=== PATIENT | female | born 1935 | race Caucasian/White ===

== ENCOUNTER → 2020-01-27 | Outpatient (CLI) | payer OTHER, MEDICARE ==
[~2020-01-27] MED LIST: AMLODIPINE BESYL5 MG PO; ARAVA20 MG PO; CALCIUM +D & M1 EACH; FISH OIL 1,001000 M2 PO; FISHOIL; IBANDRONATE SO150 MG PO; LOVASTAT20 PO; MIRALAX255 GM PO; NORCO 7.5-3251 EACH PO; OMEPRAZOLE20 M2 PO; PROLIA60 MG/1 ML SQ; TRAMADOL 50 MG50 MG; ULTRAM 50MG TAB50 MG PO
== END ==
LOC: MRI 08:48
PROVIDERS: ATTEND Specialist
DX: M47.22 Other spondylosis with radiculopathy, cervical region (principal); M48.02 Spinal stenosis, cervical region

== ENCOUNTER → 2020-02-01 | Outpatient (CLI) | payer OTHER, MEDICARE ==
[~2020-02-01] VITALS: Ht 152.4 cm; Wt 67.1 kg
[~2020-02-01] MED LIST changes: +AMLODIPINE BESY10 MG PO; -AMLODIPINE BESYL5 MG PO; +DULOXETINE HCL20 MG PO; +LIPITOR40 MG PO; +NEURONTIN 300M300 M2 PO; +POTASSIUM20 PO; +TRAMADOL 50 MG50 MG PO; +VITAMIN D3 COM1 EACH PO
[2020-02-01 14:33] VITALS: BP 128/76
--- NOTE | 2020-02-01 15:00 | NUR ---
Pain Clinic Assessment: 1. History of Osteoarthritis: EVERYWHERE History of Rheumatoid Arthritis: YES-CONTROLLED WITH MEDICATION 2. Height: 5 ft. 0 in. 152.4 cm. Weight: 148.0 lb. oz. 67.132 kg. Patient's BMI: 28.9 3. Vital Signs: BP: 128/76 Pulse: 73 Resp: 16 Temp: 02 Sat: 98 ECG Mon: 4. Pain Intensity: 6-8 5. Fall Risk: Dizziness: Y Needs help standing or walking: N Fallen in the last 3 months: N Fall risk comments: 6. Patient on Blood Thinner: None 7. History of Hypertension: Y 8. Opioid Therapy greater than 6 weeks: N Opiate Contract Signed: 9. Risk Assessment Tool Provided: 0-LOW RISK 10. Functional Assessment Tool: 11. Recreational Drug Use: Never Drug Type: Tobacco Use: Never Smoker Tobacco Type: Amount or Packs/day: How Many Years: Alcohol Use: Yes Frequency: Weekly Quant: 2 DRINKS PER WEEK
--- NOTE | 2020-02-15 08:53 | HPC ---
[facility] [place] [address] [address] PAIN MANAGEMENT CONSULTATION Name: ANDREA SHEARER Room #: REG PANTERA Carroll.#: [id number] Admission: 02/01/20 Attend Phys: Liss Chávez MD Discharge: Date of : 39 Report #: [id number] THIS REPORT FOR: cc: India Keith MD,India Chávez,Liss Heath MD ~ CC: Liss Keith DATE OF SERVICE: 02/01/2020 PRIMARY CARE PHYSICIAN: India Keith MD CHIEF COMPLAINT: Sciatic pain. HISTORY: The patient is an 84-year-old female who presents to the pain clinic with complaints of back and leg pain. It involves her right hip and she describes as a sharp pain with aching, burning qualities. Pain is worse when she is standing. Pain improves when she is sitting. She recalls being thrown from a horse about 20 years ago and landing on her buttocks. Pain improves when she uses heating pad alternating with ice. Rates her pain as an 8-10 depending on the activity. CURRENT MEDICATIONS: K-Dur 20 mEq, vitamin D3 complete, gabapentin 300 mg t.i.d., duloxetine 20 mg, Lipitor 40 mg, Prolia 60 mg subcutaneous, tramadol 50 mg q.4 hours p.r.n., Arava 20 mg, MiraLax 17 grams, omeprazole 20 mg, and amlodipine 10 mg. ALLERGIES: PENICILLIN, ASPIRIN, KETOROLAC. PAST MEDICAL HISTORY: Rheumatoid arthritis, GERD, essential hypertension, nicotine dependence, quit in 1972, thoracic spine pain, radicular low back pain, primary osteoarthritis involving multiple joints, kidney disease, chronic stage 3, arthralgias of joints, osteoporosis. PAST SURGICAL HISTORY: Hysterectomy and appendectomy in 1984, surgery, hernia repair in 2011. SOCIAL HISTORY: She is retired, has not worked since 1994. REVIEW OF SYSTEMS: Generally good health, wears glasses, hearing loss. LABORATORY DATA: 1. MRI of the lumbar spine dated 02/03/2020 L3-L4 broad-based posterior disk bulge, bilateral facet hypertrophy and ligamentum flavum hypertrophy that resulting in severe central canal stenosis in AP dimension of 5.6 mm, severe [facility] [address] [place] [address] PAIN MANAGEMENT CONSULTATION Name: ANDREA SHEARER [id number] Admission: 02/01/20 Attend Phys: Liss Chávez MD Discharge: Date of : 39 Report #: [id number] right and moderate left neural foraminal stenosis with narrowing. 2. L4-L5, broad-based posterior disk bulge, bilateral facet hypertrophy and ligamentum flavum hypertrophy resulting in severe canal stenosis with AP and canal measuring 4 mm and [id number] bilateral neural foraminal narrowing. 3. L5-S1 bilateral facet hypertrophy, no significant central canal stenosis and [id number] neural foraminal narrowing. 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 PAIN CLINIC ASSESSMENT AND PQRS: 1. History of osteoarthritis in numerous areas. 2. History of rheumatoid arthritis, controlled with medications. 3. Height 5 feet 0, weight 138 pounds, BMI is 28.9. 4. Vital signs: Blood pressure 128/76, pulse 73, respiratory rate 16, room air saturation 98%. 5. Pain intensity 6-8/10. 6. Fall history: The patient has not fallen in the last 3 months. 7. Blood thinner. The patient is not on a blood thinning medication. 8. Hypertension. The patient is being treated for hypertension. 9. Opioids greater than 6 weeks. The patient is not on a regular opioid regimen. 10. Risk assessment tool, low for opioid use. 11. Functional assessment tool 18 out of 70. 12. Recreational drug use. The patient denies. 13. Tobacco: The patient does not smoke. 14. Alcohol: The patient drinks about 2 alcoholic beverages per week. PHYSICAL EXAMINATION: GENERAL: The patient is a well-developed, well-nourished white female. Appears her stated age. She is alert and oriented x 3. Her affect is appropriate. Speech is fluent. HEENT: Normocephalic, atraumatic. Extraocular eye muscles intact. Sclerae nonicteric. Mucous membranes are moist. NECK: Without adenopathy or JVD. LUNGS: Clear. CARDIOVASCULAR: Regular. GASTROINTESTINAL: No abdominal complaints. MUSCULOSKELETAL: Upper extremity muscle strength judged to be 5-/5 for the major muscle groups in the upper extremity. Deep tendon reflexes are trace in the upper extremities. The patient complains of increasing pain and discomfort with prolonged standing. Pain improves when she sits down. Anterior and posterior spring tests are negative. Juwan sign is negative. The patient complains of pain in lower portion of her back with pain that radiates down into the left buttocks and pain in the right buttocks that radiates down the [facility] [address] [place] [address] PAIN MANAGEMENT CONSULTATION Name: ANDREA SHEARER Room #: REG PANTERA Olson#: [id number] Admission: 02/01/20 Attend Phys: Liss Chávez MD Discharge: Date of : 39 Report #: [id number] posterior portion of her thigh in the L5-S1 distribution. IMPRESSION: Lumbar radiculopathy. RECOMMENDATIONS: We discussed treatment options with the patient. A model was used to indicate the area of probable pathology. A video was used to indicate the pathophysiology of spinal stenosis. The patient states that this was helpful and gave her greater understanding. We have discussed the risk and benefits of treating the condition with an epidural injection. The patient will follow up in the near future and return to the Pain Clinic at which time we will consider possibility of an epidural steroid injection. We would like to thank you for letting us participate in her care. We hope she continues to improve. <ELECTRONICALLY SIGNED> By: Liss Chávez MD 02/15/20 [id number] Liss Chávez MD /[facility]
== END ==
LOC: PAIN 07:06
PROVIDERS: ATTEND Anesthesiology Pain Medicine
DX: M47.26 Other spondylosis with radiculopathy, lumbar region (principal); M48.061 Spinal stenosis, lumbar region without neurogenic claudication; Z79.891 Long term (current) use of opiate analgesic

== ENCOUNTER → 2020-02-08 | Outpatient (CLI) | payer OTHER, MEDICARE ==
[~2020-02-08] VITALS: Ht 152.4 cm; Wt 68.8 kg
[2020-02-08 08:47] VITALS: BP 162/80
--- NOTE | 2020-02-08 08:50 | NUR ---
Pain Clinic Assessment: 1. History of Osteoarthritis: EVERYWHERE History of Rheumatoid Arthritis: YES-CONTROLLED WITH MEDICATION 2. Height: 5 ft. 0 in. 152.4 cm. Weight: 151.6 lb. oz. 68.765 kg. Patient's BMI: 29.6 3. Vital Signs: BP: 162/80 Pulse: 77 Resp: 20 Temp: 02 Sat: 98 ECG Mon: 4. Pain Intensity: 8 5. Fall Risk: Dizziness: N Needs help standing or walking: N Fallen in the last 3 months: N Fall risk comments: 6. Patient on Blood Thinner: None 7. History of Hypertension: Y 8. Opioid Therapy greater than 6 weeks: N Opiate Contract Signed: 9. Risk Assessment Tool Provided: 0-LOW RISK 10. Functional Assessment Tool: 11. Recreational Drug Use: Never Drug Type: Tobacco Use: Never Smoker Tobacco Type: Amount or Packs/day: How Many Years: Alcohol Use: Yes Frequency: Quant:
== END | disposition home or self-care (01) ==
LOC: PAIN 06:58
PROVIDERS: ATTEND Anesthesiology Pain Medicine
DX: M54.16 Radiculopathy, lumbar region (principal); G89.29 Other chronic pain; Z98.890 Other specified postprocedural states; Z79.899 Other long term (current) drug therapy

== ENCOUNTER → 2020-04-20 | Outpatient (CLI) | payer OTHER, MEDICARE ==
[~2020-04-20] VITALS: Ht 152.4 cm; Wt 68.3 kg
[2020-04-20 08:03] VITALS: BP 139/84
--- NOTE | 2020-04-20 08:08 | NUR ---
Pain Clinic Assessment: 1. History of Osteoarthritis: EVERYWHERE History of Rheumatoid Arthritis: YES-CONTROLLED WITH MEDICATION 2. Height: 5 ft. 0 in. 152.4 cm. Weight: 150.6 lb. oz. 68.312 kg. Patient's BMI: 29.4 3. Vital Signs: BP: 139/84 Pulse: 83 Resp: 20 Temp: 02 Sat: 98 ECG Mon: 4. Pain Intensity: 3 5. Fall Risk: Dizziness: N Needs help standing or walking: N Fallen in the last 3 months: N Fall risk comments: 6. Patient on Blood Thinner: None 7. History of Hypertension: Y 8. Opioid Therapy greater than 6 weeks: N Opiate Contract Signed: 9. Risk Assessment Tool Provided: 0-LOW RISK 10. Functional Assessment Tool: 11. Recreational Drug Use: Never Drug Type: Tobacco Use: Never Smoker Tobacco Type: Amount or Packs/day: How Many Years: Alcohol Use: Yes Frequency: Quant:
== END | disposition home or self-care (01) ==
LOC: PAIN 04-19 08:41
PROVIDERS: ATTEND Anesthesiology Pain Medicine
DX: M54.16 Radiculopathy, lumbar region (principal); G89.29 Other chronic pain; Z98.890 Other specified postprocedural states; Z79.899 Other long term (current) drug therapy; Z88.0 Allergy status to penicillin; Z88.8 Allergy status to other drugs, medicaments and biological substances

== ENCOUNTER → 2020-06-27 | Outpatient (CLI) | payer OTHER, MEDICARE ==
[~2020-06-27] MED LIST changes: +ELIQUIS5 MG PO; +HYDROCODON-ACE1 EAC7 PO
== END ==
LOC: TELEPC 06:56 → PAIN 12:51 → TELEPC 12:52
PROVIDERS: ATTEND Anesthesiology Pain Medicine
DX: M54.16 Radiculopathy, lumbar region (principal); I82.402 Acute embolism and thrombosis of unspecified deep veins of left lower extremity; I10 Essential (primary) hypertension; Z79.01 Long term (current) use of anticoagulants

== ENCOUNTER → 2020-11-07 | Outpatient (CLI) | payer OTHER, MEDICARE ==
[~2020-11-07] VITALS: Ht 152.4 cm; Wt 71.7 kg
[2020-11-07 09:50] VITALS: BP 134/76
--- NOTE | 2020-11-07 09:52 | NUR ---
Pain Clinic Assessment: 1. History of Osteoarthritis: PT STATES ALL OVER History of Rheumatoid Arthritis: YES 2. Height: 5 ft. 0 in. 152.4 cm. Weight: 158.0 lb. oz. 71.668 kg. Patient's BMI: 30.9 3. Vital Signs: BP: 134/76 Pulse: 72 Resp: 16 Temp: 02 Sat: 98 ECG Mon: 4. Pain Intensity: 7 5. Fall Risk: Dizziness: N Needs help standing or walking: N Fallen in the last 3 months: N Fall risk comments: 6. Patient on Blood Thinner: None 7. History of Hypertension: Y 8. Opioid Therapy greater than 6 weeks: N Opiate Contract Signed: 9. Risk Assessment Tool Provided: 0-LOW RISK 10. Functional Assessment Tool: 11. Recreational Drug Use: Never Drug Type: Tobacco Use: Never Smoker Tobacco Type: Amount or Packs/day: How Many Years: Alcohol Use: Yes Frequency: Quant:
== END | disposition home or self-care (01) ==
LOC: PAIN 07:56
PROVIDERS: ATTEND Anesthesiology Pain Medicine
DX: M54.16 Radiculopathy, lumbar region (principal); G89.29 Other chronic pain; Z98.890 Other specified postprocedural states; Z79.899 Other long term (current) drug therapy; Z88.0 Allergy status to penicillin; Z88.8 Allergy status to other drugs, medicaments and biological substances

== ENCOUNTER → 2020-12-28 | Outpatient (CLI) | payer OTHER, MEDICARE ==
[~2020-12-28] VITALS: Ht 152.4 cm; Wt 69.6 kg
[2020-12-28 12:25] VITALS: BP 143/81
--- NOTE | 2020-12-28 12:49 | NUR ---
Pain Clinic Assessment: 1. History of Osteoarthritis: PT STATES ALL OVER History of Rheumatoid Arthritis: YES 2. Height: 5 ft. 0 in. 152.4 cm. Weight: 153.4 lb. oz. 69.582 kg. Patient's BMI: 30.0 3. Vital Signs: BP: 143/81 Pulse: 76 Resp: 16 Temp: 02 Sat: 100 ECG Mon: 4. Pain Intensity: 0 (AT REST); 6 ACTIVITY 5. Fall Risk: Dizziness: N Needs help standing or walking: N Fallen in the last 3 months: N Fall risk comments: 6. Patient on Blood Thinner: Y 7. History of Hypertension: Y 8. Opioid Therapy greater than 6 weeks: N Opiate Contract Signed: 9. Risk Assessment Tool Provided: 0-LOW RISK 10. Functional Assessment Tool: 11. Recreational Drug Use: Never Drug Type: Tobacco Use: Never Smoker Tobacco Type: Amount or Packs/day: How Many Years: Alcohol Use: Yes Frequency: Daily Quant: 1
== END ==
LOC: PAIN 11:53
PROVIDERS: ATTEND Anesthesiology Pain Medicine
DX: M54.16 Radiculopathy, lumbar region (principal); I10 Essential (primary) hypertension; M32.9 Systemic lupus erythematosus, unspecified; Z90.710 Acquired absence of both cervix and uterus; Z88.6 Allergy status to analgesic agent; Z88.0 Allergy status to penicillin; Z79.899 Other long term (current) drug therapy; Z79.891 Long term (current) use of opiate analgesic

== ENCOUNTER → 2021-01-11 | Outpatient (CLI) | payer OTHER, MEDICARE ==
[~2021-01-11] VITALS: Ht 152.4 cm; Wt 69.8 kg
[2021-01-11 09:25] VITALS: BP 125/81
--- NOTE | 2021-01-11 09:41 | NUR ---
Pain Clinic Assessment: 1. History of Osteoarthritis: PT STATES ALL OVER History of Rheumatoid Arthritis: YES 2. Height: 5 ft. 0 in. 152.4 cm. Weight: 153.8 lb. oz. 69.763 kg. Patient's BMI: 30.0 3. Vital Signs: BP: 125/81 Pulse: 80 Resp: 14 Temp: 02 Sat: 100 ECG Mon: 4. Pain Intensity: 0 (AT REST); 6 ACTIVITY 5. Fall Risk: Dizziness: N Needs help standing or walking: N Fallen in the last 3 months: N Fall risk comments: 6. Patient on Blood Thinner: Y 7. History of Hypertension: Y 8. Opioid Therapy greater than 6 weeks: N Opiate Contract Signed: 9. Risk Assessment Tool Provided: 0-LOW RISK 10. Functional Assessment Tool: 11. Recreational Drug Use: Never Drug Type: Tobacco Use: Never Smoker Tobacco Type: Amount or Packs/day: How Many Years: Alcohol Use: Yes Frequency: Weekly Quant: 1
== END | disposition home or self-care (01) ==
LOC: PAIN 06:57
PROVIDERS: ATTEND Anesthesiology Pain Medicine
DX: M51.16 Intervertebral disc disorders with radiculopathy, lumbar region (principal); G89.29 Other chronic pain; I10 Essential (primary) hypertension; M19.90 Unspecified osteoarthritis, unspecified site; Z98.890 Other specified postprocedural states; Z79.01 Long term (current) use of anticoagulants; Z79.899 Other long term (current) drug therapy; Z90.710 Acquired absence of both cervix and uterus; Z90.49 Acquired absence of other specified parts of digestive tract; Z88.0 Allergy status to penicillin; Z88.8 Allergy status to other drugs, medicaments and biological substances

== ENCOUNTER → 2021-03-01 | Outpatient (CLI) | payer OTHER, MEDICARE | LOC: SJCVC 12:43 | PROVIDERS: ATTEND Internal Medicine | DX: I13.10 Hypertensive heart and chronic kidney disease without heart failure, with stage 1 through stage 4 chronic kidney disease, or unspecified chronic kidney disease (principal); N18.2 Chronic kidney disease, stage 2 (mild); R55 Syncope and collapse; D68.62 Lupus anticoagulant syndrome; E78.5 Hyperlipidemia, unspecified; M48.00 Spinal stenosis, site unspecified; M19.90 Unspecified osteoarthritis, unspecified site; M06.9 Rheumatoid arthritis, unspecified; M47.812 Spondylosis without myelopathy or radiculopathy, cervical region; Z86.718 Personal history of other venous thrombosis and embolism; Z79.899 Other long term (current) drug therapy; Z79.01 Long term (current) use of anticoagulants; Z72.89 Other problems related to lifestyle; Z87.891 Personal history of nicotine dependence; Z98.890 Other specified postprocedural states; Z90.710 Acquired absence of both cervix and uterus; Z90.722 Acquired absence of ovaries, bilateral; Z88.6 Allergy status to analgesic agent ==

== ENCOUNTER → 2021-04-30 | Outpatient (CLI) | payer OTHER, MEDICARE | LOC: SJCVC 12:57 | PROVIDERS: ATTEND Internal Medicine | DX: I49.8 Other specified cardiac arrhythmias (principal); I12.9 Hypertensive chronic kidney disease with stage 1 through stage 4 chronic kidney disease, or unspecified chronic kidney disease; N18.32 Chronic kidney disease, stage 3b; E78.5 Hyperlipidemia, unspecified; D68.62 Lupus anticoagulant syndrome; R55 Syncope and collapse; K21.9 Gastro-esophageal reflux disease without esophagitis; Z86.718 Personal history of other venous thrombosis and embolism; Z88.8 Allergy status to other drugs, medicaments and biological substances; Z79.899 Other long term (current) drug therapy; Z72.89 Other problems related to lifestyle; Z87.891 Personal history of nicotine dependence ==

== ENCOUNTER → 2021-05-13 | Outpatient (CLI) | payer OTHER, MEDICARE | LOC: SJCVC 09:01 | PROVIDERS: ATTEND Internal Medicine | DX: Z51.81 Encounter for therapeutic drug level monitoring (principal); K21.9 Gastro-esophageal reflux disease without esophagitis; I10 Essential (primary) hypertension; E78.5 Hyperlipidemia, unspecified; Z79.01 Long term (current) use of anticoagulants; Z87.891 Personal history of nicotine dependence; Z79.899 Other long term (current) drug therapy ==

== ENCOUNTER → 2021-05-20 | Outpatient (CLI) | payer OTHER, MEDICARE | END | disposition home or self-care (01) | LOC: SJCVC 08:50 | PROVIDERS: ATTEND Internal Medicine | DX: Z51.81 Encounter for therapeutic drug level monitoring (principal); Z79.01 Long term (current) use of anticoagulants; I12.9 Hypertensive chronic kidney disease with stage 1 through stage 4 chronic kidney disease, or unspecified chronic kidney disease; N18.2 Chronic kidney disease, stage 2 (mild); E78.5 Hyperlipidemia, unspecified; K21.9 Gastro-esophageal reflux disease without esophagitis; M47.812 Spondylosis without myelopathy or radiculopathy, cervical region; K57.90 Diverticulosis of intestine, part unspecified, without perforation or abscess without bleeding; Z90.710 Acquired absence of both cervix and uterus; Z98.890 Other specified postprocedural states; Z79.899 Other long term (current) drug therapy; Z87.891 Personal history of nicotine dependence; Z88.1 Allergy status to other antibiotic agents ==

== ENCOUNTER → 2021-05-22 | Outpatient (CLI) | payer OTHER, MEDICARE | LOC: SJCVC 10:58 | PROVIDERS: ATTEND Internal Medicine | DX: D68.62 Lupus anticoagulant syndrome (principal); I12.9 Hypertensive chronic kidney disease with stage 1 through stage 4 chronic kidney disease, or unspecified chronic kidney disease; N18.2 Chronic kidney disease, stage 2 (mild); E78.5 Hyperlipidemia, unspecified; K21.9 Gastro-esophageal reflux disease without esophagitis; Z82.49 Family history of ischemic heart disease and other diseases of the circulatory system; Z87.891 Personal history of nicotine dependence; Z72.89 Other problems related to lifestyle; Z88.6 Allergy status to analgesic agent; Z79.899 Other long term (current) drug therapy ==

== ENCOUNTER → 2021-05-27 | Outpatient (CLI) | payer OTHER, MEDICARE | LOC: SJCVC 10:54 | PROVIDERS: ATTEND Internal Medicine | DX: Z51.81 Encounter for therapeutic drug level monitoring (principal); Z79.01 Long term (current) use of anticoagulants; Z79.899 Other long term (current) drug therapy; Z87.891 Personal history of nicotine dependence; Z72.89 Other problems related to lifestyle; Z88.8 Allergy status to other drugs, medicaments and biological substances ==

== ENCOUNTER → 2021-06-03 | Outpatient (CLI) | payer OTHER, MEDICARE ==
[~2021-06-03] MED LIST changes: +TYLENOL325 M1 PO; +WARFARIN SODIUM5 MG PO
== END ==
LOC: SJCVC 08:57
PROVIDERS: ATTEND Internal Medicine
DX: D68.62 Lupus anticoagulant syndrome (principal); I12.9 Hypertensive chronic kidney disease with stage 1 through stage 4 chronic kidney disease, or unspecified chronic kidney disease; N18.2 Chronic kidney disease, stage 2 (mild); E78.5 Hyperlipidemia, unspecified; F17.210 Nicotine dependence, cigarettes, uncomplicated; Z82.49 Family history of ischemic heart disease and other diseases of the circulatory system; Z79.899 Other long term (current) drug therapy

== ENCOUNTER → 2021-06-05 | Outpatient (CLI) | payer OTHER, MEDICARE ==
[~2021-06-05] VITALS: Ht 152.4 cm; Wt 67.3 kg
[2021-06-05 09:55] VITALS: BP 143/80
--- NOTE | 2021-06-05 10:07 | NUR ---
Pain Clinic Assessment: 1. History of Osteoarthritis: PT STATES ALL OVER History of Rheumatoid Arthritis: YES 2. Height: 5 ft. 0 in. 152.4 cm. Weight: 148.4 lb. oz. 67.314 kg. Patient's BMI: 29.0 3. Vital Signs: BP: 143/80 Pulse: 81 Resp: 16 Temp: 02 Sat: 99 ECG Mon: 4. Pain Intensity: 2 (AT REST); 10 ACTIVITY 5. Fall Risk: Dizziness: N Needs help standing or walking: N Fallen in the last 3 months: N Fall risk comments: 6. Patient on Blood Thinner: Y 7. History of Hypertension: Y 8. Opioid Therapy greater than 6 weeks: N Opiate Contract Signed: 9. Risk Assessment Tool Provided: 0-LOW RISK 10. Functional Assessment Tool: 11. Recreational Drug Use: Never Drug Type: Tobacco Use: Never Smoker Tobacco Type: Amount or Packs/day: How Many Years: Alcohol Use: Yes Frequency: Special Occasions Quant: 1
== END ==
LOC: PAIN 08:56
PROVIDERS: ATTEND Anesthesiology Pain Medicine
DX: M47.26 Other spondylosis with radiculopathy, lumbar region (principal); M25.561 Pain in right knee; M25.562 Pain in left knee; I10 Essential (primary) hypertension; M48.061 Spinal stenosis, lumbar region without neurogenic claudication; Z90.710 Acquired absence of both cervix and uterus; Z88.0 Allergy status to penicillin; Z88.6 Allergy status to analgesic agent; Z79.899 Other long term (current) drug therapy

== ENCOUNTER → 2021-06-12 | Outpatient (CLI) | payer OTHER, MEDICARE | LOC: SJCVC 08:14 | PROVIDERS: ATTEND Internal Medicine | DX: Z51.81 Encounter for therapeutic drug level monitoring (principal); Z79.01 Long term (current) use of anticoagulants; D68.62 Lupus anticoagulant syndrome; K21.9 Gastro-esophageal reflux disease without esophagitis; I49.1 Atrial premature depolarization; M06.9 Rheumatoid arthritis, unspecified; M19.90 Unspecified osteoarthritis, unspecified site; M47.812 Spondylosis without myelopathy or radiculopathy, cervical region; I12.9 Hypertensive chronic kidney disease with stage 1 through stage 4 chronic kidney disease, or unspecified chronic kidney disease; N18.2 Chronic kidney disease, stage 2 (mild); R94.31 Abnormal electrocardiogram [ECG] [EKG]; Z86.718 Personal history of other venous thrombosis and embolism; Z79.899 Other long term (current) drug therapy; Z98.890 Other specified postprocedural states; Z87.891 Personal history of nicotine dependence ==

== ENCOUNTER → 2021-06-19 | Outpatient (CLI) | payer OTHER, MEDICARE | LOC: SJCVC 08:08 | PROVIDERS: ATTEND Internal Medicine | DX: Z51.81 Encounter for therapeutic drug level monitoring (principal); Z79.01 Long term (current) use of anticoagulants; Z79.899 Other long term (current) drug therapy; K21.9 Gastro-esophageal reflux disease without esophagitis; I10 Essential (primary) hypertension; I49.1 Atrial premature depolarization; M06.9 Rheumatoid arthritis, unspecified; M19.90 Unspecified osteoarthritis, unspecified site; E78.5 Hyperlipidemia, unspecified; M47.812 Spondylosis without myelopathy or radiculopathy, cervical region; R94.31 Abnormal electrocardiogram [ECG] [EKG]; Z86.718 Personal history of other venous thrombosis and embolism; Z98.890 Other specified postprocedural states; Z88.8 Allergy status to other drugs, medicaments and biological substances; Z87.891 Personal history of nicotine dependence ==

== ENCOUNTER → 2021-06-26 | Outpatient (CLI) | payer OTHER, MEDICARE | LOC: SJCVC 08:14 | PROVIDERS: ATTEND Internal Medicine | DX: Z51.81 Encounter for therapeutic drug level monitoring (principal); Z79.01 Long term (current) use of anticoagulants ==

== ENCOUNTER → 2021-07-10 | Outpatient (CLI) | payer OTHER, MEDICARE | LOC: SJCVC 08:44 | PROVIDERS: ATTEND Internal Medicine | DX: Z51.81 Encounter for therapeutic drug level monitoring (principal); K21.9 Gastro-esophageal reflux disease without esophagitis; I12.9 Hypertensive chronic kidney disease with stage 1 through stage 4 chronic kidney disease, or unspecified chronic kidney disease; N18.9 Chronic kidney disease, unspecified; E78.5 Hyperlipidemia, unspecified; Z79.01 Long term (current) use of anticoagulants; Z79.891 Long term (current) use of opiate analgesic; Z79.899 Other long term (current) drug therapy; Z88.8 Allergy status to other drugs, medicaments and biological substances; Z87.891 Personal history of nicotine dependence; Z72.89 Other problems related to lifestyle ==

== ENCOUNTER → 2021-09-09 | Outpatient (CLI) | payer OTHER, MEDICARE | LOC: SJCVC 09:17 | PROVIDERS: ATTEND Internal Medicine | DX: D68.62 Lupus anticoagulant syndrome (principal); I12.9 Hypertensive chronic kidney disease with stage 1 through stage 4 chronic kidney disease, or unspecified chronic kidney disease; N18.2 Chronic kidney disease, stage 2 (mild); F17.210 Nicotine dependence, cigarettes, uncomplicated; Z79.01 Long term (current) use of anticoagulants; Z72.89 Other problems related to lifestyle; Z88.6 Allergy status to analgesic agent ==